=== PATIENT | male | born 1960 | race Caucasian/White ===

== ENCOUNTER 2016-04-07 12:17 | Emergency (ER) | payer BC ==
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
--- NOTE | 2016-04-07 13:47 | DI ---
XR CXR 2VW PA/LAT,04/07/2016 12:43 PM: Clinical History: Left anterior rib pain. Previous Exam: None at this facility. Findings: PA and lateral views of the chest are obtained, and demonstrates a mild airspace disease within the l piyush bases most consistent with subsegmental atelectasis. The cardiomediastinum and bony thorax are un remarkable. Impression: No fracture identified.
[2016-04-07 16:12] VITALS: RESP 16; TEMP 97.5
== END 2016-04-07 13:48 | disposition home or self-care (01) ==
LOC: ER 12:17
DX: S22.31XA Fracture of one rib, right side, initial encounter for closed fracture (principal); M54.89 Other dorsalgia; V86.59XA Driver of other special all-terrain or other off-road motor vehicle injured in nontraffic accident, initial encounter
CPT/HCPCS: 71020; 99282